=== PATIENT | female | born 1995 | race Two or more races ===

== ENCOUNTER 2017-10-27 15:25 | Emergency (ER) | payer OTHER ==
[~2017-10-27] VITALS: Ht 165.1 cm; Wt 88.5 kg
== END 2017-10-27 21:46 | disposition home or self-care (01) ==
LOC: ER 15:25
DX: B34.9 Viral infection, unspecified (principal)

== ENCOUNTER 2019-05-07 14:43 | Emergency (ER) | payer OTHER ==
[~2019-05-07] VITALS: Ht 167.6 cm; Wt 122.5 kg
[2019-05-07] MEDS ORDERED: BACTRIM DS TAB1 EACH PO (17:07)
== END 2019-05-07 17:17 | disposition home or self-care (01) ==
LOC: ER
DX: L08.89 Other specified local infections of the skin and subcutaneous tissue (principal); S61.22 Laceration with foreign body of finger without damage to nail; X58.XXXS Exposure to other specified factors, sequela